=== PATIENT | male | born 1980 | race Caucasian/White ===

== ENCOUNTER 2019-11-03 12:54 | Outpatient (CLI) | payer MEDICAID, SELFPAY ==
--- NOTE | 2019-11-03 13:07 | XR_ITS ---
WS: [id number] Lateral views of cervical spine in the flexion, extension and neutral positions. 11/03/2019 Clinical Data: LOCALIZED SWELLING Comparison: None. Findings: There is loss of anterior and central vertebral body height of the C6 vertebral body. This could be r esult of a congenital abnormality or trauma. Disc heights are normal. There is no prevertebral soft t issue swelling. No limitation of motion or subluxation can be seen. XR/XR cervical spine fl/ex [id number] Impression: 1. Negative for limitation of motion or subluxation on flexion or extension. 2. 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
--- NOTE | 2019-11-03 13:55 | ECG_ITS ---
[facility] Test Date: 2019-11-03 Pat Name: Nickolas Ortiz Department: Room: Gender: Male Director Check: : 1980 Requested By: Luca Henry Order Number: [id number] Yung MD: Beto Simental M.D. Measurements Intervals [place] Rate: 75 P: 39 IN: 134 QRS: 18 QRSD: 105 T: 33 QT: 359 QTc: 401 Interpretive Statements SINUS RHYTHM No previous ECG available for comparison Electronically Signed On 11-03-2019 14:02:28 CDT by Beto Simental M.D. [email or web address]
[2019-11-03 14:20] LABS: INR 0.97 (0.8-1.2)
[2019-11-03 14:28] LABS: Alanine Aminotransferase 17 U/L (0-41); Albumin Level 4.1 g/dL (3.5-5.2); Alkaline Phosphatase 74 IU/L (40-130); Anion Gap 15.5 (5-19); Aspartate Amino Transferase 18 U/L (0-40); Blood Urea Nitrogen 7 mg/dL (6-20); Carbon Dioxide 29 mmol/L (22-29); Chloride 99 mmol/L (98-107); Globulin 4.2 g/dL (1.3-4.6); Glomerular Filtration Rate 106.5 mL/min (90-130); Glucose 99 mg/dL (65-115); Osmolality Calculated 284 mOsm/kg (285-295); Potassium 4.5 mmol/L (3.5-5.1); Sodium 139 mmol/L (136-145); Total Bilirubin 0.4 mg/dL (0.15-1.2); Total Protein 8.3 g/dL (6.6-8.7)
== END 2019-11-03 12:55 | disposition home or self-care (01) ==
LOC: RAD 13:01
PROVIDERS: Visit Provider Specialist
DX: R22.1 Localized swelling, mass and lump, neck (principal); M43.8X2 Other specified deforming dorsopathies, cervical region
CPT/HCPCS: 36415; 72040; 80053; 85610; 93005; 93010

== ENCOUNTER 2019-11-08 10:21 | Outpatient (CLI) | payer MEDICAID, SELFPAY ==
--- NOTE | 2019-11-08 16:41 | PTH.FRZRPT ---
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 Luca Ag Specimen reported at what time: 10:14
[2020-04-01 12:11] LABS: Miscellaneous Test See Scanned Lab Rpt
== END 2019-11-08 10:22 | disposition home or self-care (01) ==
LOC: LAB 10:54
PROVIDERS: Visit Provider Specialist
DX: R22.1 Localized swelling, mass and lump, neck (principal)
CPT/HCPCS: 88184; 88185; 88188; 88309